=== PATIENT | male | born 1980 | race Caucasian/White ===

== ENCOUNTER 2024-12-24 14:08 | Inpatient (IN) ==
--- NOTE | 2024-12-24 14:21 | Emergency Department Note ---
Impression & Plan ST elevation myocardial infarction (STEMI), Chest pain, Unstable angina ED Provider Note NAME: OSMIN KINNEY AGE: 44 SEX: M : 1980 ARRIVES VIA: Ambulance INFORMANT: Patient, EMS ED PROVIDER(S): Kian Pennington DO CHIEF COMPLAINT: Heart alert HPI: The patient is a 44-year-old male who presented to the emergency department as a transfer directly from [facility] for an evaluation of acute VA. The patient had a EKG at their facility that showed ST segment elevation VA in the inferior leads. The patient states he started having chest pain yesterday. He was treated with aspirin heparin as well as morphine at the transferring center. The patient states his pain is significantly improved. I did contact the ssn/ssbn assistant navigator prior to the patient arrival. ROS: See above HPI for pertinent positives & negatives. A total of 10 systems reviewed and were otherwise negative. PAST MEDICAL HISTORY: See Below PAST SURGICAL HISTORY: See Below FAMILY HISTORY: See Below SOCIAL HISTORY: See Below HOME MEDICATIONS: See Below ALLERGIES: See Below VITALS: See Below PHYSICAL EXAMINATION: GENERAL: The patient is awake and alert. The patient appears uncomfortable. EYES: The conjunctivae are clear. The pupils are round and reactive. EARS, NOSE, MOUTH AND THROAT: The nose is without any evidence of any deformity. NECK: The neck is nontender and supple. RESPIRATORY: Normal respiratory effort is noted there is no evidence of wheezing rhonchi or rales CARDIOVASCULAR: Regular rate and rhythm noted there no murmurs rubs or gallops normal S1 normal S2. GASTROINTESTINAL: The abdomen is soft. Abdomen is nontender. MUSCULOSKELETAL/EXTREMITIES: There is no evidence of gross deformity full range of motion is noted in the hips and shoulders. SKIN: There is no obvious evidence of any rash. There are no petechiae, pallor or cyanosis noted. NEUROLOGIC: Patient is awake alert and oriented x3 MEDICAL DECISION MAKING: The patient is a 44-year-old male who was sent to the emergency department from [facility] for an evaluation of unstable angina and chest pain. The patient had EKG abnormalities that were worrisome for ischemia. The patient was treated with aspirin as well as morphine and heparin at the previous facility. He arrived at our facility with significant improvement of his pain but pain was still present. The patient's EKG did show improvement compared to his earlier tracing. I discussed his condition with the ssn/ssbn assistant navigator. The patient was evaluated in the emergency department. Given his findings this could be consistent with a recent VA as he has Q waves in the inferior and lateral leads. The patient ultimately was found to have an elevated cardiac biomarker. He was taken directly to the Senior Catering Sales Manager from the emergency department. I discussed his condition with the on-call [facility] Hospitalist as well. Triage Nursing notes reviewed. Prior medical records reviewed from [facility]. Vital Signs: reviewed and remarkable for no significant abnormalities Differential diagnosis: Cardiac ischemia, aortic dissection, pulmonary embolism, pneumothorax, pneumonia, pericarditis, myocarditis, esophageal rupture, GERD, cholecystitis, pancreatitis, musculoskeletal, as well as other pathologies. ER treatment provided: See below Diagnostics interpreted by me: ECG: EKG was obtained in the emergency department. My interpretation is normal sinus rhythm at 80 bpm. There is no ectopy. Inferior and lateral Q waves were noted consistent with an age-indeterminate STEMI. There was also mild ST elevations in the inferior leads. This was compared to a tracing at the previous facility. The ST segment elevation is improved compared to the previous tracing. Cardiac Monitoring: An order was placed for continuous cardiac monitoring. The monitor shows a rate of 81 bpm with sinus rhythm. Laboratory studies: As stated above and show below. Imaging studies: See below. Consultation(s): I discussed this case with Dr. Berger who is on-call for interventional cardiology. I discussed this case with the Michelle who is on-call for the [facility] Hospitalist group. ED COURSE: Procedures: none Critical Care: I have personally spent greater than 35 minutes of critical care time in the direct management of this patient. This includes bedside care, interpretation of diagnostic studies, and testing, discussion with consultants, patient, and family members, and other required patient management activities. This 35 minutes is in excess of all separately billable procedures. Past Med/Surg History Problem List (Updated 12/24/24 @ 15:24 by Kian Pennington DO) Unstable angina (Acute) Chest pain (Acute) ST elevation myocardial infarction (STEMI) (Acute) Social History Feels Safe at Home: Yes Results & Data (ED) Vital Signs Vital Signs - 24 hr 12/24/24 14:10 12/24/24 14:25 Temperature 36.5 C Temperature Source Oral Pulse Rate 80 81 Pulse Rhythm Regular Pulse Strength Normal Respiratory Rate 18 Respiratory Effort / Characteristics Non-Labored Spontaneous Respiratory Depth Normal Respiratory Pattern Regular Blood Pressure 105/76 Blood Pressure Mean 85 Pulse Oximetry 93 Oxygen Delivery Method Room Air Sepsis Recent Fever Within 48 Hours No Sepsis New/Unexplained Change in Mental Status No Sepsis Action Taken by Nursing No Action Required Home Medications Current Medication List: was personally reviewed by me Laboratory Data Attestation: I reviewed the patient's lab results. 12/24/24 14:19 12/24/24 14:19 Lab Results 12/24/24 12/24/24 Range/Units 14:19 14:24 WBC 14.53 H (4.8-10.8) K/ul RBC 4.79 (4.70-6.10) M/uL Hgb 13.9 L (14.0-18.0) g/dL POC Hgb 13.3 L (14.0-18.0) g/dl Hct 39.8 L (42.0-52.0) % POC Hct 39 L (42-52) % MCV 83.1 (80.0-100.0) fL MCH 29.0 (25.0-34.0) pg MCHC 34.9 (32.0-36.0) g/dL RDW Std Deviation 40.3 (36.4-46.3) fL RDW Coeff of Tha 13.3 (11.5-14.5) % Plt Count 220 (130-400) K/uL MPV 9.1 L (9.4-12.4) fL Immature Gran % (Auto) 0.4 % Neut % (Auto) 70.7 % Lymph % (Auto) 15.8 % Faulk % (Auto) 12.6 % Eos % (Auto) 0.2 % Baso % (Auto) 0.3 % Neut # (Auto) 10.28 H (1.40-6.50) K/uL Lymph # (Auto) 2.29 (1.20-3.40) K/uL Faulk # (Auto) 1.83 H (0.11-0.59) K/uL Eos # (Auto) 0.03 (0.00-0.50) K/uL Baso # (Auto) 0.04 (0.00-0.20) K/uL Immature Gran # (Auto) 0.06 (0.01-0.20) K/uL PT 11.2 (9.0-12.0) Seconds INR 1.1 (0.9-1.1) APTT 40 H (21-31) Seconds PTT Ratio 1.5 POC Sodium 137 (135-144) mmol/L Sodium 136 (136-145) mmol/L POC Potassium 3.7 (3.3-5.0) mmol/L Potassium 3.8 (3.5-5.1) mmol/L POC Chloride 100 L (101-112) mmol/L Chloride 103 (98-107) mmol/L Carbon Dioxide 25 (21-32) mmol/L POC Total CO2 22 L (24-31) mmol/L Anion Gap 8 (3-11) POC Anion Gap 19.0 (16-25) mmol/L POC BUN 18 (7-18) mg/dl BUN 19 (6-23) mg/dl Creatinine 1.12 (0.6-1.4) mg/dl POC Creatinine 1.3 (0.6-1.3) mg/dl Est Cr Clr Drug Dosing 134.3 ml/min eGFR 82.56 BUN/Creatinine Ratio 17.0 (10-20) Glucose 97 (70-99(Fasting)) mg/dl POC Glucose (other) 95 (70-99) mg/dl Calcium 8.9 (8.6-10.3) mg/dl POC Ioniz Calcium Anneliese 1.16 (1.12-1.32) mmol/l Total Bilirubin 1.0 (0.2-1.0) mg/dl AST 161 H (13-39) U/L ALT 41 (7-52) U/L Alkaline Phosphatase 44 (34-104) U/L Troponin I High Sens 38546.4 H* (0-20) pg/ml Total Protein 6.7 (6.0-8.3) gm/dl Albumin 3.9 (3.4-5.0) gm/dl Globulin 2.8 (2.5-4.0) gm/dl Albumin/Globulin Ratio 1.4 (0.9-2) Lipase 238 H (11-82) U/L Discharge Plan Visit Data Chief Complaint: Cardiac Assessment Stated Complaint: Cardiac Assessment ED Provider: Kian Pennington Discharge Problem: ST elevation myocardial infarction (STEMI), Chest pain, Unstable angina Patient Disposition: Being Evaluated by Hospitalist Condition: Fair Forms Stand Alone Forms: My [facility] Referrals Referrals: PCP,NO [Primary Care Provider] -
--- NOTE | 2024-12-24 14:29 | Pre Anesthesia Assessment ---
Date of Service December 24, 2024 Pre Sedation Assessment Vital Signs Temp Pulse Resp BP Pulse Ox O2 Del Method 12/24/24 14:25 81 12/24/24 14:10 36.5 C 80 18 105/76 93 Room Air Cardiovascular RRR, no murmur, no edema Respiratory normal respiratory effort, lungs clear to auscultation Pre-Sedation Airway Assessment class 3 ASA 4 Notes The planned sedation has been discussed with the patient. Informed Consent was obtained. I have identified the patient, determined the appropriateness of sedation and have assessed the patient immediately prior to the procedure. All medicine(s) and interventions are by my order.
[2024-12-24 14:34] LABS: Hematocrit (blood only) 39.8 % (42.0-52.0); Hemoglobin 13.9 g/dL (14.0-18.0); Immature Granulocytes # (auto) 0.06 K/uL (0.01-0.20); Immature Granulocytes % (auto) 0.4 %; Mean Corpuscular Hemoglobin 29.0 pg (25.0-34.0); Mean Corpuscular Volume 83.1 fL (80.0-100.0); Platelet Count 220 K/uL (130-400); RDW Standard Deviation 40.3 fL (36.4-46.3); Red Blood Count 4.79 M/uL (4.70-6.10); White Blood Count 14.53 K/ul (4.8-10.8)
[2024-12-24 14:52] LABS: Alanine Aminotransferase 41.0 U/L (7-52); Anion Gap 8.0 (3-11); Bilirubin,Total 1.0 mg/dl (0.2-1.0); Blood Urea Nitrogen 19.0 mg/dl (6-23); Calcium 8.9 mg/dl (8.6-10.3); Carbon Dioxide 25.0 mmol/L (21-32); Chloride 103.0 mmol/L (98-107); Creatinine Clr Calc Pharmacy 134.3 ml/min; Glucose 97.0 mg/dl (70-99(Fasting)); Potassium 3.8 mmol/L (3.5-5.1); Sodium 136.0 mmol/L (136-145)
[2024-12-24 14:53] LABS: Albumin Globulin Ratio 1.4 (0.9-2); Albumin Level 3.9 gm/dl (3.4-5.0); Alkaline Phosphatase 44.0 U/L (34-104); Globulin 2.8 gm/dl (2.5-4.0); Lipase 238.0 U/L (11-82); Total Protein 6.7 gm/dl (6.0-8.3)
[2024-12-24 15:09] LABS: INR 1.1 (0.9-1.1); Partial Thromboplastin Time 40 Seconds (21-31); Prothrombin Time 11.2 Seconds (9.0-12.0)
[2024-12-24] MEDS: HEPARIN (PORCINE) 1000 UNIT/ML 10 ML (CATH LAB USE ONLY) ONE ×2 (15:52→16:14)
[2024-12-24] MEDS: niCARdipine 2,000 MCG/20 ML SYR ONE (15:52)
[2024-12-24] MEDS: NITROGLYCERIN/D5W 100MCG/ML 20ML SYR ONE (15:52)
--- NOTE | 2024-12-24 16:03 | Post Anesthesia Assessment ---
Date of Service December 24, 2024 Post Sedation Assessment Vital Signs Temp Pulse Resp BP Pulse Ox O2 Del Method 12/24/24 14:25 81 12/24/24 14:10 36.5 C 80 18 105/76 93 Room Air Recovery Score Activity: Moves 4 extremities Respiration: Deep Breath/Cough Circulation: +/-20% PreAnes Value Consciousness: Fully Awake Oxygen Saturation: > 92% On Room Air Discharge Sedation Level of Care: Fast Track Phase II Post Sedation Plan On clinical assessment, the patient appears to have tolerated the sedation without complications. Patient is recovering as anticipated. Patient will continue to be monitored by nursing and may be discharged when sedation discharge criteria are met per below protocol. Upon Completions of procedure up to 15 minutes continue every 5 minute vital signs and the P.A.R. score; then discharge to a Phase I or Fast Track to Phase II per the following guidelines: * Discharge Patient to appropriate Phase II area if PAR is 8 or greater or return to pre- procedure baseline. The post - procedure orders will be as directed. * If PAR score is less than 8 or not return to pre-procedure baseline then patient will follow Phase I monitoring till PAR is reached for Phase II. The Phase I may be done in procedure room or may call to secure a Phase I area. * If naloxone or flumazenil are used for reversal, hold in Phase I for continued monitoring from when last reversal dose was given for a minimum of 60 minutes or longer pending the nurse and/or physician discretion of patient condition before discharge to Phase II. Please call the Sedation Physician to re-evaluate and complete post-note for discharge to Phase II area. Do NOT discharge from procedure sedation or Phase 1 until post- sedation evaluation note is complete by procedure /sedation MD Sedation Discharge Instructions to be given to the patient at discharge to home. [facility] Procedure Codes (Charges) Indication for Procedure Indication for procedure: STEMI
[2024-12-24] MEDS: MIDAZOLAM HCL 1 MG/ML 2ML VIAL ONE ×2 (16:11→16:13)
[2024-12-24] MEDS: OPTIRAY 350 ONE (16:11)
[2024-12-24] MEDS: PHENYLEPHRINE 100MCG/ML 5ML SYR ONE (16:12)
[2024-12-24] MEDS: TICAGRELOR 90 MG TAB ONE (16:12)
[2024-12-24] MEDS: ATROPINE SULFATE 0.1 MG/ML 10ML SYR IV ONE (16:12)
[2024-12-24] MEDS: EPTIFIBATIDE 0.75 MG/ML 75MG VIAL (CATH LAB USE ONLY) IV ONE (16:13)
[2024-12-24] MEDS: EPTIFIBATIDE 2 MG/ML 10 ML VIAL (CATH LAB USE ONLY) IV ONE (16:13)
[2024-12-24] MEDS: HEPARIN 25000 UNIT/500 ML D5W IV ONE (16:14)
[2024-12-24] MEDS ORDERED: NITROGLYCERIN SL 0.4 MG/TAB TAB SL PRN (16:20)
[2024-12-24] MEDS ORDERED: EPTIFIBATIDE BOLUS/DRIP IV STA (16:20)
[2024-12-24] MEDS ORDERED: ATROPINE SULFATE 0.1 MG/ML 10ML SYR IV PRN (16:20)
[2024-12-24] MEDS ORDERED: ONDANSETRON INJ 2 MG/ML 2 ML VIAL IV PRN (16:20)
[2024-12-24] MEDS ORDERED: SODIUM CHLORIDE 0.9% 1,000 ML IV SCH (16:30)
[2024-12-24] MEDS ORDERED: EPTIFIBATIDE 75 MG/100 ML VIAL IV SCH (16:30)
[2024-12-24] MEDS: OPTIRAY 320 125ml IV ONE (16:49)
[2024-12-24] MEDS: DEXTROSE 50% 50 ML SYRINGE IV STA (16:54)
[2024-12-24] MEDS: DEXTROSE 50% 50 ML SYRINGE IV ONE (16:54)
--- NOTE | 2024-12-24 17:11 | CT Scan Report ---
Technique: Axial computed tomography images were obtained of the neck after the administration of intravenous contrast according to the CT angiogram protocol Findings: No stenosis is seen in the common carotid arteries bilaterally. There is plaque within the right carotid bulb, with less than 30% diameter narrowing. The remainder of the internal carotid arteries appear patent bilaterally. There is plaque within the proximal external carotid arteries bilaterally without significant stenosis The vertebral arteries are patent bilaterally with no significant stenosis seen. The visualized thoracic aorta appears unremarkable Impression: Bilateral carotid atherosclerosis without significant stenosis Electronically signed by Isidro Hayden 12-24-2024 5:10 PM
[2024-12-24] MEDS: MoRPHine SULFATE 10 MG/ML CARP/VIAL IV PRN (17:15)
--- NOTE | 2024-12-24 17:17 | History & Physical Report ---
Date of Service December 24, 2024 Assessment & Plan Admission and Anticipated Discharge Date Admission Date: December 24, 2024 History of Present Illness Chief Complaint: chest pain Primary Care Provider: NO PCP Allergies Allergy/AdvReac Type Severity Reaction Status Date / Time No Known Allergies Allergy Unverified 12/24/24 16:43 Past Med/Surg History Problem List (Updated 12/24/24 @ 15:24 by Kian Pennington DO) Unstable angina (Acute) Chest pain (Acute) ST elevation myocardial infarction (STEMI) (Acute) Social History Feels Safe at Home: Yes Results & Data Results & Data Vital Signs (Past 12 Hours) Vital Signs Temp Pulse Resp BP Pulse Ox O2 Del Method 12/24/24 14:25 81 12/24/24 14:10 36.5 C 80 18 105/76 93 Room Air Code Status & VTE Plan VTE Prophylaxis Plan VTE Prophylaxis will be ordered: Yes
--- NOTE | 2024-12-24 17:24 | CT Scan Report ---
Technique: Axial computed tomography images were obtained of the brain before and after the administration of intravenous contrast according to the CT angiogram protocol Findings: There is some contrast within the dural sinuses and arteries on the precontrast images No definite stenosis or aneurysm is seen of the anterior, middle, or posterior cerebral artery circulations. The visualized vertebral arteries and the basilar artery appear unremarkable Impression: No definite stenosis or aneurysm of the intracranial arteries Electronically signed by Isidro Hayden 12-24-2024 5:23 PM
[2024-12-24] MEDS ORDERED: PNEUMOCOCCAL VACCINE (PCV20) 20-VAL CONJ-DIP CRM/PF 0.5 ML SYR IM ONE (17:57)
[2024-12-24] MEDS ORDERED: INFLUENZA VACC TS2025-26(6m+)/PF (IIV3) 0.5mL Syr IM ONE (17:57)
[2024-12-24 17:58] LABS: Hematocrit (blood only) 39.2 % (42.0-52.0); Hemoglobin 13.3 g/dL (14.0-18.0); Immature Granulocytes # (auto) 0.05 K/uL (0.01-0.20); Immature Granulocytes % (auto) 0.4 %; Mean Corpuscular Hemoglobin 28.7 pg (25.0-34.0); Mean Corpuscular Volume 84.7 fL (80.0-100.0); Platelet Count 202 K/uL (130-400); RDW Standard Deviation 41.6 fL (36.4-46.3); Red Blood Count 4.63 M/uL (4.70-6.10); White Blood Count 13.34 K/ul (4.8-10.8)
[2024-12-24] MEDS: MoRPHine SULFATE 2 MG/ML CARP IV STA (18:05)
[2024-12-24] MEDS ORDERED: MoRPHine SULFATE 2 MG/ML CARP ONE (18:05)
[2024-12-24 18:09] LABS: Albumin Level 3.7 gm/dl (3.4-5.0); Anion Gap 8.0 (3-11); Bilirubin,Total 1.2 mg/dl (0.2-1.0); Calcium 8.3 mg/dl (8.6-10.3); Carbon Dioxide 22.0 mmol/L (21-32); Chloride 103.0 mmol/L (98-107); Magnesium 2.1 mg/dl (1.7-2.4); Potassium 4.2 mmol/L (3.5-5.1); Sodium 133.0 mmol/L (136-145)
--- NOTE | 2024-12-24 18:12 | Post Operative Brief Note ---
Cardiology Brief Post Op Date of Surgery December 24, 2024 Pre & Post Diagnosis Operation Date: 12/24/24 02:15 <No data on this case meets the specified criteria> Procedure PCI RCA Diagnostic coronary angiography This patient had chest pain for over 2 days and presented to an outside hospital. EKG there suggested inferior ST elevation MS (large inferior Q waves plus [address] elevation in inferior leads). He was transferred to this facility with ongoing chest pain rated 5 out of 10 in severity. EKG here was similar although somewhat improved compared to the outside EKG. Since he had ongoing discomfort he was taken emergently to the cardiac catheterization suite. He had received heparin, aspirin, and Brilinta loading dose. Soft tissue the right wrist were anesthetized using 2 mL of 1% Xylocaine. Right radial artery was accessed and a 6 Belgian radial artery sheath was placed. Patient was provided IV heparin after the ACT was checked, intra-arterial nitroglycerin and nicardipine for vasospasm prevention, and was sedated with fentanyl and Versed. Left coronary angiography was performed in orthogonal views with a 5 Belgian JL 3.5 diagnostic catheter. Right coronary angiography was performed with a 6 Belgian JR4 guide catheter. The RCA was 100% occluded near the ostium. Decision was made to attempt PCI. A run-through guide catheter was advanced through the guide catheter and was passed rather easily past the occluded area. We then used a small caliber (2.0 mm) balloon to predilate the vessel. This yielded some distal flow and there was suggestion of large somewhat organized appearing thrombus. We attempted additional predilatation and aspiration thrombectomy. Pipe Installer angiography suggested possible coronary dissection. This was first looked at with IVUS and then we advanced a small caliber OTW catheter balloon over the wire more distally. We removed the wire and injected contrast which demonstrated dissection all the way down into the distal RCA and branches. The balloon catheter was removed after reinsertion of the wire. A second guidewire was then advanced and positioned distally. IVUS evaluation of this wire suggested that it was in the true lumen. It also suggested a spiral dissection. Since the dissection appeared to be extensive beginning near the ostium of the RCA decision was made to place a stent at the ostium to try to contain extension of the dissection to the aorta. The first wire was removed and a 2.5 mm stent was implanted and postdilated to 3 mm. We then decided to attempt stenting the entire RCA to the distal branches. However, we were only able to place 2 additional stents in an overlap fashion. We were unable to keep the guide catheter in place. After that, angiography suggested decent flow through the stented area but still very restricted flow distally. We tried to reengage with the original JR4 catheter but were unsuccessful. We then changed to a AR-1 but this also could not engage adequately. Finally we downsized to a 5 Belgian JR4 guide catheter which would get to the ostium but we were unsuccessful in readvancing a guidewire distally. We felt further attempts were futile and we had already given him significant contrast and radiation. Decision was made to forego further interventional attempts and instead focus on medical management. Patient was there for transfer to the ICU on heparin drip, Integrilin drip, plan for echocardiogram, and possible referral to tertiary center should he not do well on medical management alone. He was hemodynamically stable with improved chest discomfort. This ended the case. Motor Coach Supervisor Don Berger MD, PhD Filling Station Attendant JUSTIN Nieto Estimated Blood Loss 10 Findings Consistent with Post-Op Diagnosis Anesthesia Type RN Sedation Complications Unsuccessful PCI of RCA Extensive coronary dissection of unclear etiology (spontaneous versus iatrogenic) Disposition Disposition: Surgical ICU [facility] Cardiac Procedure Charge Indication for Procedure Indication for procedure: Late presenting patient ST elevation MS with ongoing symptoms
[2024-12-24 18:15] LABS: Alanine Aminotransferase 36.0 U/L (7-52); Albumin Globulin Ratio 1.4 (0.9-2); Alkaline Phosphatase 40.0 U/L (34-104); Blood Urea Nitrogen 17.0 mg/dl (6-23); Cholesterol 170.0 mg/dl (0-200); Creatinine Clr Calc Pharmacy 106.1 ml/min; Globulin 2.7 gm/dl (2.5-4.0); Glucose 135.0 mg/dl (70-99(Fasting)); HDL Cholesterol 39.0 mg/dl; Total Protein 6.4 gm/dl (6.0-8.3); Triglycerides 85.0 mg/dl (0-150)
--- NOTE | 2024-12-24 18:31 | Discharge Summary ---
Date of Service December 24, 2024 Admission HPI Per Admitting Provider Mr. Shane is a 44 year old male that presetned to the [facility] as a transfer from [facility] for further evaluation of an inferior wall STEMI. At [facility], he was given Aspirin, Morphine and Heparin. Upon arrival to [facility], he was taken to the culture media laboratory assistant immediately after identifying his troponin level of > 25,686. A PCI RCA was performed. In the culture media laboratory assistant, three stents were placed in the RCA and a noted LV Thrombus was identified. Post catheterization, he was taken to the ICU where a stroke alert was called as he started to have right sided weakness. His NIH was 7. He was immediately taken to CT for head and neck CTA which did not identify significant stenosis. [facility] was consulted for stroke like symptoms and it was identified that given the Heparin and Integrilin that he received in cath, that he would not be a TNK candidate. Interventional Cardiology suggested a goal of medication management post catheterization, but at bedside was identified that he was decompensating with his stroke like symptoms and there was concern of possible spontaneous further dissection in the RCA, along with LV thrombus concerns. A head and neck CTA were performed and it was identified that there is plaque within the right carotid bulb, with less than 30% diameter narrowing. The mainder of the internal carotid arteries appear patent bilaterally. Patient is AAOx4 and able to answer simple questions. He denies any previous AMI or CVA. He takes Lisinopril as his only home medication. Around 1800 he did start to have additional anterior chest pain with left arm radiation. Additional PMH includes HTn and HLD. He does take Lisinopril as a home medications. I was able to talk with the patients brother, at bedside, his father who is next of kin and decision maker: Brad Shane on the phone [phone] to provide an update. Due to our limited Neurology and Cardiac resources here at [facility], a transfer was initiated. I spoke directly with Dr. Chavez Roa cardiac [facility] and Dr Fidencio Fry from cardiology. Dr. Fry is the accepting physician. This individual requires an upgrade in care and is currently fit for travel and is hemodynamically stable. All patients belongings and next of kin updated. We appreciate the opportunity to care for Mr. Price. Please do not hesitate to contact us with any questions or concerns. [facility] [phone]. Admission Exam Per Admitting Provider Neuro: AAOx4, PERRLA, no aphagia, memory changes, NIH 7 HEENT: head normocephalic, moist mucus membranes CV: S1/S2, (-) M/G/R, (-) edema, cap refill < 3 seconds Resp: Lungs CTA in all castro. On RA GI: Abdomen S/NT/ND, Ax4 bowel sounds, (-) CVA tenderness Musculoskeletal: LUE 4+/5 strength, RUE 5/5, BL LE 4/5 Skin: (-) rashes , (-) erythema. Psych: euthymic , yet tired mood Principal Diagnosis STEMI and LV thrombus/stroke like symptoms Discharge Exam Neuro: AAOx3, PERRLA, NIH 7, vision blurry, HEENT: head normocephalic, moist mucus membranes CV: S1/S2, (-) M/G/R, (-) edema, cap refill < 3 seconds Resp: Lungs CTA in all castro. On 6 liters oxymask GI: Abdomen S/NT/ND, Ax4 bowel sounds, (-) CVA tenderness Musculoskeletal: 3/5 RUE strength with contracted right hand, 4/5 LUE strength, Skin: (-) rashes , (-) erythema. Psych: euthymic mood Discharge Data Allergies Allergy/AdvReac Type Severity Reaction Status Date / Time No Known Allergies Allergy Unverified 12/24/24 16:43 Consultations 12/24/24 14:19 Consult Cardiac Catheterization Stat 12/24/24 14:48 ED Decision to Admit Stat 12/24/24 15:18 Consult [place] Routine 12/24/24 16:28 Consult Cardiac Rehabilitation Routine 12/24/24 16:42 Consult [place] Routine 12/24/24 17:06 Burn CD for patient Stat Procedures Performed Operation Date: 12/24/24 02:15 Actual Procedures p Cineradiography w/Routine Exam - Don Berger MD, PhD Ordered Studies 12/24/24 14:22 CL Cath Imgs for PACS use only Stat sent via computer 12/24/24 16:43 CTA head wo/w [CT angio head wo/w] Stat CTA neck with con [CT angio neck with con] Stat Findings: There is some contrast within the dural sinuses and arteries on the precontrast images No definite stenosis or aneurysm is seen of the anterior, middle, or posterior cerebral artery circulations. The visualized vertebral arteries and the basilar artery appear unremarkable Impression: No definite stenosis or aneurysm of the intracranial arteries Hospital Course (1) Unstable angina: (2) Chest pain: (3) ST elevation myocardial infarction (STEMI): (4) HTN (hypertension): (5) Stroke-like symptoms: Total Time Total Time Spent Total Time Spent (In Minutes): I spent a total of 108 minutes coordinating, documenting, and providing care for this patient excluding time spent inthe performance of separately billed services or time spent by another provider/QHP. Discharge Plan Discharge Items Patient Disposition: Transfer Acute Care Hospital Reason For Visit: HEART ALERT Discharge Diagnosis: LV Thrombus/Stroke symptoms Condition on Discharge: Fair Activity: As commented below Activity Comment: bed rest until further evaluation Lifting: None Non-emergency contact: Primary Care Provider, Surgeon and [employer] Slitting Machine Operator Call non-emergency contact if: you have any medication questions and your symptoms worsen Follow-up/Referrals: PCP,NO [Primary Care Provider] - Diet: Heart Healthy Addtl Attending Provider Instructions: Mr. Shane is a 44 year old male that presetned to the [facility] as a transfer from [facility] for further evaluation of an inferior wall STEMI. At [facility], he was given Aspirin, Morphine and Heparin. Upon arrival to [facility], he was taken to the culture media laboratory assistant immediately after identifying his troponin level of > 26,000. In the culture media laboratory assistant, three stents were placed in the RCA and a noted LV Thrombus was identified. Post catheterization, he was taken to the ICU where a stroke alert was called as he started to have right sided weakness. His NIH was 7. He was immediately taken to CT for head and neck CTA which did not identify significant stenosis. [facility] was consulted for stroke like symptoms and it was identified that given the Heparin and Integrilin that he received in cath, that he would not be a TNK candidate. Interventional Cardiology suggested a goal of medication management post catheterization, but at bedside was identified that he was decompensating with his stroke like symptoms and there was concern of possible spontaneous further dissection in the RCA, along with LV thrombus concerns. A head and neck CTA were performed and it was identified that there is plaque within the right carotid bulb, with less than 30% diameter narrowing. The mainder of the internal carotid arteries appear patent bilaterally. Patient is AAOx4 and able to answer simple questions. He denies any previous AMI or CVA. He takes Lisinopril as his only home medication. Around 1800 he did start to have additional anterior chest pain with left arm radiation. I was able to talk with the patients brother, at bedside, his father who is next of kin and decision maker: Brad Shane on the phone [phone] to provide an update. Due to our limited Neurology and Cardiac resources here at [facility], a transfer was initiated. A large LV thrombus, and now likely TIA vs. stroke was identified. EF appears around 30%. I spoke directly with Dr. Chavez Roa cardiac sugery and Dr Fidencio Fry from cardiology. Dr. Fry is the accepting physician. This individual requires an upgrade in care and is currently fit for travel and is hemodynamically stable. All patients belongings and next of kin updated. We appreciate the opportunity to care for Mr. Price. Please do not hesitate to contact us with any questions or concerns. [facility] . Pending Studies at Discharge: No Stand-Alone Forms: My [facility] Skilled Items Patient informed of condition?: Yes DNR: No Discharge Level of Care: Other Communicable Disease: No Discharge Prognosis: Deteriorating Lines: Peripheral IV Urinary Catheter: Yes Medications and DC Order Prescriptions: New atorvastatin 40 mg Tablet 40 mg PO QAM Qty: 7 0RF aspirin 81 mg Tablet,Delayed Release (Dr/Ec) 81 mg PO QAM Qty: 7 0RF lisinopril 5 mg Tablet 5 mg PO QAM Qty: 7 0RF metoprolol tartrate 25 mg Tablet 25 mg PO BID Qty: 7 0RF ticagrelor [Brilinta] 90 mg Tablet 90 mg PO BID Qty: 7 0RF Discharge Orders: Discharge Order (Routine); Ordered 12/24/24 Ordered By: Jackie Jackson Admission Data Admit Date/Time: 12/24/24 15:16 Attending Provider: Jackie Jackson I. Admit Provider: Dre Avery Primary Care Provider: PCP,NO Other Providers: Don Berger; Dre Avery; Vlad Perez Supervising Physician Co-Signing Physician Notes Patient seen and examined at bedside. Patient does not look comfortable on exam. Crushing chest pain. States weakness started after catheterization. Feels weak on right side. On exam, NIHSS of 5 for right arm drift, right leg drift, right facial droop. Also has blurry vision in right eye. Leukocytosis noted perhaps reactive. Na of 133 noted, [place] [address] in setting of STEMI s/p 3 stents to RCA and RCA dissection. Very complex case. Patient s/p inferior STEMI, now s/p 3 stents to RCA, partial fusiform RCA dissection, large LV thrombus, and now likely TIA vs. stroke. EF appears around 30%. Requires stroke center and advanced interventional cardiology team at tertiary care center given complexity of case. Going to [facility] cardiac ICU which is appropriate given complexity of case and possible need for further interventions. I have seen and discussed the case with the collaborating advanced practitioner. I agree with the above H&P. I have reviewed and confirmed the patients medical history, the findings on physical examination, and the patients diagnosis and treatment plan with Jackie WORTHY and agree with the information documented. I spent a total of 80 minutes coordinating, documenting, and providing care for this patient excluding time spent in the performance of separately billed services. All of the aforementioned completed outside of collaborating with the assigned advanced practitioner for a full treatment plan. I have reviewed the advanced practitioner's documentation, and I agree with, and take responsibility for the plan of care
[2024-12-24 18:40] LABS: Hemoglobin A1C 6.4 % (4.5-5.6)
[2024-12-24 18:43] LABS: INR 1.1 (0.9-1.1); Prothrombin Time 11.6 Seconds (9.0-12.0)
[2024-12-24 19:00] LABS: Partial Thromboplastin Time > 139 Seconds (21-31)
--- NOTE | 2024-12-24 19:27 | History & Physical Report ---
Date of Service December 24, 2024 Assessment & Plan (1) Unstable angina: (2) Chest pain: (3) ST elevation myocardial infarction (STEMI): (4) HTN (hypertension): (5) Stroke-like symptoms: Plan Mr. Shane is a 44 year old male that presetned to the [facility] as a transfer from [facility] for further evaluation of an inferior wall STEMI. At [facility], he was given Aspirin, Morphine and Heparin. Upon arrival to [facility], he was taken to the laborer cook house immediately after identifying his troponin level of > 25,686. A PCI RCA was performed. In the laborer cook house, three stents were placed in the RCA and a noted LV Thrombus was identified. Post catheterization, he was taken to the ICU where a stroke alert was called as he started to have right sided weakness. His NIH was 7. He was immediately taken to CT for head and neck CTA which did not identify significant stenosis. [facility]] was consulted for stroke like symptoms and it was identified that given the Heparin and Integrilin that he received in cath, that he would not be a TNK candidate. Interventional Cardiology suggested a goal of medication management post catheterization, but at bedside was identified that he was decompensating with his stroke like symptoms and there was concern of possible spontaneous further dissection in the RCA, along with LV thrombus concerns. A head and neck CTA were performed and it was identified that there is plaque within the right carotid bulb, with less than 30% diameter narrowing. The mainder of the internal carotid arteries appear patent bilaterally. Patient is AAOx4 and able to answer simple questions. He denies any previous AMI or CVA. He takes Lisinopril as his only home medication. Around 1800 he did start to have additional anterior chest pain with left arm radiation. I was able to talk with the patients brother, at bedside, his father who is next of kin and decision maker: Brad Shane on the phone [phone] to provide an update. Due to our limited Neurology and Cardiac resources here at [facility], a transfer was initiated. I spoke directly with Dr. Chavez Roa cardiac nika and Dr Fidencio Fry from cardiology. Dr. Fry is the accepting physician. This individual requires an upgrade in care and is currently fit for travel and is hemodynamically stable. All patients belongings and next of kin updated. We appreciate the opportunity to care for Mr. Price. Please do not hesitate to contact us with any questions or concerns. [facility] [phone]. In the laborer cook house, three stents were placed in the RCA and a noted LV Thrombus was identified. Post catheterization, he was taken to the ICU where a stroke alert was called as he started to have right sided weakness. His NIH was 7. He was immediately taken to CT for head and neck CTA which did not identify significant stenosis. [facility] and it was identified that given the Heparin and Integrilin that he received in cath, that he would not be a TNK candidate. Interventional Cardiology suggested a goal of medication management post catheterization, but at bedside was identified that he was decompensating with his stroke like symptoms and there was concern of possible spontaneous further dissection in the RCA, along with LV thrombus concerns. A head and neck CTA were performed and it was identified that there is plaque within the right carotid bulb, with less than 30% diameter narrowing. The mainder of the internal carotid arteries appear patent bilaterally. Patient is AAOx4 and able to answer simple questions. He denies any previous AMI or CVA. He takes Lisinopril as his only home medication. Around 1800 he did start to have additional anterior chest pain with left arm radiation. Pt smokes 5-6 cigarettes per day, no alcohol use, no recreational drug use. I was able to talk with the patients brother, at bedside, his father who is next of kin and decision maker: Brad Svitlana on the phone [phone] to provide an update. Due to our limited Neurology and Cardiac resources here at [facility], a transfer was initiated. I spoke directly with Dr. Chavez Roa cardiac [facility] and Dr Fidencio Fry from cardiology. Dr. Fry is the accepting physician. This individual requires an upgrade in care and is currently fit for travel and is hemodynamically stable. All patients belongings and next of kin updated. We appreciate the opportunity to care for Mr. Price. Please do not hesitate to contact us with any questions or concerns. [facility] [phone]. Admission and Anticipated Discharge Date Admission Date: December 24, 2024 History of Present Illness Chief Complaint: chest pain Primary Care Provider: NO PCP Mr. Shane is a 44 year old male that presetned to the [facility] as a transfer from [facility] for further evaluation of an inferior wall STEMI. At [facility], he was given Aspirin, Morphine and Heparin. Upon arrival to [facility], he was taken to the laborer cook house immediately after identifying his troponin level of > 25,686. A PCI RCA was performed. In the laborer cook house, three stents were placed in the RCA and a noted LV Thrombus was identified. Post catheterization, he was taken to the ICU where a stroke alert was called as he started to have right sided weakness. His NIH was 7. He was immediately taken to CT for head and neck CTA which did not identify significant stenosis. [facility]3] was consulted for stroke like symptoms and it was identified that given the Heparin and Integrilin that he received in cath, that he would not be a TNK candidate. Interventional Cardiology suggested a goal of medication management post catheterization, but at bedside was identified that he was decompensating with his stroke like symptoms and there was concern of possible spontaneous further dissection in the RCA, along with LV thrombus concerns. A head and neck CTA were performed and it was identified that there is plaque within the right carotid bulb, with less than 30% diameter narrowing. The mainder of the internal carotid arteries appear patent bilaterally. Patient is AAOx4 and able to answer simple questions. He denies any previous AMI or CVA. He takes Lisinopril as his only home medication. Around 1800 he did start to have additional anterior chest pain with left arm radiation. Additional PMH includes HTn and HLD. He does take Lisinopril as a home medications. I was able to talk with the patients brother, at bedside, his father who is next of kin and decision maker: Brad Shane on the phone [phone] to provide an update. Due to our limited Neurology and Cardiac resources here at [facility], a transfer was initiated. I spoke directly with Dr. Chavez Roa cardiac [facility] and Dr Fidencio Fry from cardiology. Dr. Fry is the accepting physician. This individual requires an upgrade in care and is currently fit for travel and is hemodynamically stable. All patients belongings and next of kin updated. We appreciate the opportunity to care for Mr. Price. Please do not hesitate to contact us with any questions or concerns. [facility] [phone]. Allergies Allergy/AdvReac Type Severity Reaction Status Date / Time No Known Allergies Allergy Unverified 12/24/24 16:43 Home Medications Medication Instructions Recorded Confirmed Type aspirin 81 mg tablet,delayed 81 mg PO QAM #7 tabs 12/24/24 Rx release atorvastatin 40 mg tablet 40 mg PO QAM #7 tabs 12/24/24 Rx lisinopril 5 mg tablet 5 mg PO QAM #7 tabs 12/24/24 Rx metoprolol tartrate 25 mg tablet 25 mg PO BID #7 tabs 12/24/24 Rx ticagrelor 90 mg tablet (Brilinta) 90 mg PO BID #7 tabs 12/24/24 Rx Past Med/Surg History Problem List Stroke-like symptoms HTN (hypertension) Unstable angina (Acute) Chest pain (Acute) ST elevation myocardial infarction (STEMI) (Acute) Social History Smoking Status: Current every day smoker Hx Alcohol Use: No Hx Substance Use: No Preferred Language: Slovak Bid Analyst Required: No Beliefs That Will Affect Care: None Current Living Situation: Alone Other Information That Helps Us Care for You: No Feels Safe at Home: Yes Safety Concerns: Afraid for Self Assistive Devices: None Review of Systems Review of Systems: Neuro: (-) Falls, trauma, slurred speech HEENT: (-) BADILLO, dizziness, dysphagia, visual or auditory changes CV: (-), palpitations, swelling (+) anterior chest pain radiating to left arm Resp: (-) SOB GI: (-) appetite changes, N/V/D, bowel changes : (-) urinary changes Skin: (-) rashes Psych: (-) anxiety, depression Physical Exam Physical Exam: Neuro: AAOx4, PERRLA, no aphagia, memory changes, CNII-XII grossly intact HEENT: head normocephalic, moist mucus membranes CV: S1/S2, (-) M/G/R, (-) edema, cap refill < 3 seconds Resp: Lungs CTA in all castro. On RA GI: Abdomen S/NT/ND, Ax4 bowel sounds, (-) CVA tenderness Musculoskeletal: 3/5 RUE strength, 4+/5 LUE/5 B/L LE strength. Skin: (-) rashes , (-) erythema. Psych: euthymic mood Results & Data Results & Data Vital Signs (Past 12 Hours) Vital Signs Temp Pulse Pulse Resp BP BP Pulse Ox 12/24/24 18:30 36.5 C 88 18 122/82 95 12/24/24 18:00 83 16 112/78 91 12/24/24 17:45 85 16 110/94 94 12/24/24 17:30 76 18 140/101 H 94 12/24/24 17:17 132/93 12/24/24 17:15 82 14 141/89 H 99 12/24/24 17:09 125/89 12/24/24 17:03 122/87 12/24/24 17:00 82 24 97 12/24/24 16:54 82 16 116/84 97 12/24/24 16:50 79 20 97 12/24/24 16:41 85 20 118/76 12/24/24 16:37 79 20 125/73 12/24/24 16:30 85 16 98/78 L 12/24/24 14:25 81 12/24/24 14:10 36.5 C 80 18 105/76 93 O2 Del Method O2 Flow Rate 12/24/24 18:30 Oxymask 4 12/24/24 18:00 Oxymask 4 12/24/24 17:45 Oxymask 4 12/24/24 17:30 Oxymask 4 12/24/24 17:17 12/24/24 17:15 Oxymask 4 12/24/24 17:09 12/24/24 17:03 12/24/24 17:00 Oxymask 4 12/24/24 16:54 Oxymask 4 12/24/24 16:50 Oxymask 4 12/24/24 16:41 12/24/24 16:37 12/24/24 16:30 12/24/24 14:25 12/24/24 14:10 Room Air Laboratory Results Short CBC 12/24/24 12/24/24 Range/Units 14:19 17:42 WBC 14.53 H 13.34 H (4.8-10.8) K/ul Hgb 13.9 L 13.3 L (14.0-18.0) g/dL Hct 39.8 L 39.2 L (42.0-52.0) % Plt Count 220 202 (130-400) K/uL BMP 12/24/24 12/24/24 14:19 17:42 Sodium 136 133 L Potassium 3.8 4.2 Chloride 103 103 Carbon Dioxide 25 22 BUN 19 17 Creatinine 1.12 1.17 Glucose 97 135 H Calcium 8.9 8.3 L Liver Function 12/24/24 12/24/24 Range/Units 14:19 17:42 Total Bilirubin 1.0 1.2 H (0.2-1.0) mg/dl AST 161 H 142 H (13-39) U/L ALT 41 36 (7-52) U/L Alkaline Phosphatase 44 40 (34-104) U/L Albumin 3.9 3.7 (3.4-5.0) gm/dl Diagnostic Findings Head CTA 12/24/24 16:43 Technique: Axial computed tomography images were obtained of the brain before and after the administration of intravenous contrast according to the CT angiogram protocol Findings: There is some contrast within the dural sinuses and arteries on the precontrast images No definite stenosis or aneurysm is seen of the anterior, middle, or posterior cerebral artery circulations. The visualized vertebral arteries and the basilar artery appear unremarkable Impression: No definite stenosis or aneurysm of the intracranial arteries Electronically signed by Isidro Hayden 12-24-2024 5:23 PM Neck CTA 12/24/24 16:43 Technique: Axial computed tomography images were obtained of the neck after the administration of intravenous contrast according to the CT angiogram protocol Findings: No stenosis is seen in the common carotid arteries bilaterally. There is plaque within the right carotid bulb, with less than 30% diameter narrowing. The remainder of the internal carotid arteries appear patent bilaterally. There is plaque within the proximal external carotid arteries bilaterally without significant stenosis The vertebral arteries are patent bilaterally with no significant stenosis seen. The visualized thoracic aorta appears unremarkable Impression: Bilateral carotid atherosclerosis without significant stenosis Electronically signed by Isidro Hayden 12-24-2024 5:10 PM Code Status & VTE Plan Code Status Full Code in the event of cardiac or respiratory arrest VTE Prophylaxis Plan VTE Prophylaxis will be ordered: Yes Supervising Physician Co-Signing Physician Notes Patient seen and examined at bedside. Patient does not look comfortable on exam. Crushing chest pain. States weakness started after catheterization. Feels weak on right side. On exam, NIHSS of 5 for right arm drift, right leg drift, right facial droop. Also has blurry vision in right eye. Leukocytosis noted perhaps reactive. Na of 133 noted, [place] [id number] in setting of STEMI s/p 3 stents to RCA and RCA dissection. Very complex case. Patient s/p inferior STEMI, now s/p 3 stents to RCA, partial fusiform RCA dissection, large LV thrombus, and now likely TIA vs. stroke. EF appears around 30%. Cardiology consult, appreciate recs. Code stroke called, not candidate for TNK or mechanical thrombectomy per [facility]. Requires stroke center and advanced interventional cardiology team at tertiary care center given complexity of case. Going to [facility] cardiac ICU which is appropriate given complexity of case and possible need for further interventions. I have seen and discussed the case with the collaborating advanced practitioner. I agree with the above H&P. I have reviewed and confirmed the patients medical history, the findings on physical examination, and the patients diagnosis and treatment plan with Jackie WORTHY and agree with the information documented. I spent a total of 80 minutes coordinating, documenting, and providing care for this patient excluding time spent in the performance of separately billed services. All of the aforementioned completed outside of collaborating with the assigned advanced practitioner for a full treatment plan. I have reviewed the advanced practitioner's documentation, and I agree with, and take responsibility for the plan of care
--- NOTE | 2024-12-24 20:36 | Cardiology Consultation ---
Date of Consultation December 24, 2024 Assessment & Plan (1) ST elevation myocardial infarction (STEMI): This was a late presenting (greater than 48 hours) myocardial infarction. He did however have ongoing symptoms on arrival so decision was made to perform catheterization plus or minus PCI. Coronary angiography initially appeared to be occluded RCA with probable thrombus. However, ultimately he had significant right coronary dissection (spontaneous versus iatrogenic). Attempts to open the artery with stent implantation were incomplete. Ultimately we chose medical management including daily aspirin, Brilinta 90 mg p.o. twice daily, Integrilin drip for 18 hours, heparin drip, and as tolerated as additional guideline directed medical therapy. We had significant's concern because of the suboptimal outcome of PCI that he may require referral to tertiary center for alternative attempts at revascularization. (2) Stroke-like symptoms: He did not have any symptoms consistent with stroke when he left the [employer]. Nursing did not report any change/new symptoms in transport. However, he did develop strokelike symptoms during the echocardiogram and initial images suggested LV thrombus, severe LV dysfunction with akinesis near the apex. The echo was completed after the stroke workup and then is being read by Dr. Najera. Agree with transfer to tertiary center so that he may receive optimal neurology treatment. Also, should he decompensate from a cardiac standpoint cardiac surgery would be available if needed. History of Present Illness Reason for Consultation: ST elevation ME Attending Physician: DEACON Louise History of Present Illness 44-year-old gentleman who presented to an outside facility with complaints of chest discomfort persistent over the prior 2 days. Patient told me 1 day of chest pain occurring shortly after he was working in the yard. His brother (who is an EMT) told me that it had been 2 days of continuous pain and he tried to get his brother to go to the emergency department but he would not do so. He confirmed that his brother had been working fairly hard in the yard and that he had history of poorly controlled blood pressure but felt that it was probably closer to an hour before he mentioned anything about chest discomfort. Finally, today he was feeling so poorly that his brother was able to convince him to go to the [facility] for evaluation. EKG at the outside facility suggested ST elevation ME with inferior Q waves and [address] elevation in the inferior leads. He was given IV heparin as well as aspirin and transferred to our facility. Here, he received Brilinta 180 mg p.o. He had persistent chest pain and appeared ill. EKG performed in the emergency department at this facility seemed somewhat improved compared to that from the outside facility. Patient still had 5 out of 10 chest pain and therefore decision was made to proceed with diagnostic coronary angiography plus or minus PCI as indicated. In the cardiac catheterization suite diagnostic coronary angiography was performed. This demonstrated essentially normal left coronary system which was providing collateralization to the large distal branches of the RCA. Right coronary angiography revealed 100% occlusion near the ostium of the RCA with suggestion of significant thrombus. A 6 Hungarian JR4 guide catheter was placed just inside the ostium and a run-through coronary guidewire was advanced relatively easily through the occlusion and positioned with its tip in the mid RCA. Initial PTCA performed with a small caliber balloon. Clamshell Engineer angiography was performed and the vessel appeared to have organized/layered thrombus. The decision was made to attempt further dilation with balloon and aspiration thrombectomy. However, this did not yield the anticipated improvement. It became concerning that there was dissection in the proximal RCA and we therefore advanced a small OTW balloon catheter distally over the wire. After removal of the wire, contrast was injected through the catheter and angiography confirmed extensive dissection. At that point, decision was made to try to contain the dissection proximally so that it would not extend into the aorta. After it was stented that portion seems stabilized with a normal caliber. We then attempted to perform "full metal jacket stent implantation. However, unable to complete that as the guide catheter and guidewire did not stay within the ostium and we were unable to adequately recannulate and advance a wire distally. Therefore, when it was clear that this was futile we decided to forego further attempts given the risk of perforation, excessive contrast and radiation exposure. Therefore, the patient ended up with 3 overlapped drug-eluting stents extending from the ostium of the RCA through the mid segment into the early distal segment. Flow through the stented segment was reasonable but flow distal to that was poor. Patient had significant collateral flow from the left side and so we felt medical management would be most appropriate at this time. Patient w as improved from a chest pain standpoint although he still had some residual discomfort and was therefore sent to the ICU for an echocardiogram to be done on arrival as well as optimized medical therapy. This included heparin drip, Integrilin drip, and additional standard cardiac medications as tolerated. Unfortunately, sometime after arrival in the ICU while echo was being performed the patient developed right sided visual change as well as right arm heaviness. A code stroke was called. The initial echo images suggested significantly reduced EF, akinetic apical area and probable mural thrombus. Patient was sent to the CT scanner where there was no evidence of intracranial hemorrhage. Suspicion that he had a stroke secondary to embolism of mural thrombus. ICU team discussed treatment for the stroke and he was deemed not a candidate for mechanical thrombectomy and not a candidate for fibrinolytics given the preceding use of heparin, Brilinta, aspirin, and Integrilin for his attempted PCI. Discussion was had with his family including his brother who was present at the bedside regarding transfer. They wished transfer to [facility] in [place] as family was closest to that area. After extensive discussion the ICU team was able to get the patient accepted to the cardiology service in [place]. Allergies Allergy/AdvReac Type Severity Reaction Status Date / Time No Known Allergies Allergy Unverified 12/24/24 16:43 Home Medications Medication Instructions Recorded Confirmed Type aspirin 81 mg tablet,delayed 81 mg PO QAM #7 tabs 12/24/24 Rx release atorvastatin 40 mg tablet 40 mg PO QAM #7 tabs 12/24/24 Rx lisinopril 5 mg tablet 5 mg PO QAM #7 tabs 12/24/24 Rx metoprolol tartrate 25 mg tablet 25 mg PO BID #7 tabs 12/24/24 Rx ticagrelor 90 mg tablet (Brilinta) 90 mg PO BID #7 tabs 12/24/24 Rx Patient History Social History Smoking Status: Current every day smoker Hx Alcohol Use: No Hx Substance Use: No Preferred Language: [place] Dry House Operator Required: No Beliefs That Will Affect Care: None Current Living Situation: Alone Other Information That Helps Us Care for You: No Feels Safe at Home: Yes Safety Concerns: Afraid for Self Assistive Devices: None Review of Systems Review of Systems: Negative except as per HPI Physical Exam Physical Exam: Initially in the emergency department Constitutional: Obese middle-age male. Mild acute distress. Eyes: Extraocular muscles intact. Sclera are anicteric. ENMT: Oral mucosa is dry. [place]. Neck: No JVD Respiratory: Clear to auscultation bilaterally. No wheezing, rhonchi, or rales appreciated. Fair air movement. Cardiovascular: Regular rate and rhythm. S4 gallop. Did not appreciate any rubs or murmurs in the emergency department. No edema noted. 1+ radial pulse Musculoskeletal: no cyanosis or clubbing, extremities motor strength 5/5 Neurologic: Cognition intact. Speech slow but fluent. No focal deficits. Psychiatric: A+Ox3, euthymic affect (Anxious) Results & Data Vital Signs (Past 12 Hours) Vital Signs Temp Pulse Pulse Resp BP BP Pulse Ox 12/24/24 19:45 93 12/24/24 19:31 113/87 12/24/24 19:30 91 H 23 91 12/24/24 19:27 128/83 12/24/24 19:15 112/82 12/24/24 19:00 115/72 12/24/24 19:00 115/72 12/24/24 19:00 94 H 28 H 92 12/24/24 18:45 88 10 L 89 L 12/24/24 18:45 109/82 12/24/24 18:30 92 H 19 96 12/24/24 18:30 122/82 12/24/24 18:30 36.5 C 88 18 122/82 95 12/24/24 18:15 115/72 12/24/24 18:13 123/75 12/24/24 18:00 83 16 112/78 91 12/24/24 17:45 85 16 110/94 94 12/24/24 17:30 76 18 140/101 H 94 12/24/24 17:17 132/93 12/24/24 17:15 82 14 141/89 H 99 12/24/24 17:09 125/89 12/24/24 17:03 122/87 12/24/24 17:00 82 24 97 12/24/24 16:54 82 16 116/84 97 12/24/24 16:50 79 20 97 12/24/24 16:41 85 20 118/76 12/24/24 16:37 79 20 125/73 12/24/24 16:30 85 16 98/78 L 12/24/24 14:25 81 12/24/24 14:10 36.5 C 80 18 105/76 93 O2 Del Method O2 Flow Rate 12/24/24 19:45 12/24/24 19:31 12/24/24 19:30 12/24/24 19:27 12/24/24 19:15 12/24/24 19:00 12/24/24 19:00 12/24/24 19:00 12/24/24 18:45 12/24/24 18:45 12/24/24 18:30 12/24/24 18:30 12/24/24 18:30 Oxymask 4 12/24/24 18:15 12/24/24 18:13 12/24/24 18:00 Oxymask 4 12/24/24 17:45 Oxymask 4 12/24/24 17:30 Oxymask 4 12/24/24 17:17 12/24/24 17:15 Oxymask 4 12/24/24 17:09 12/24/24 17:03 12/24/24 17:00 Oxymask 4 12/24/24 16:54 Oxymask 4 12/24/24 16:50 Oxymask 4 12/24/24 16:41 12/24/24 16:37 12/24/24 16:30 12/24/24 14:25 12/24/24 14:10 Room Air PG Care Time/CCT Total # of Minutes Spent Total Time Spent with Patient: Total time spent is greater than 50% in coordination of care (as documented) at patient's floor/unit and/or counseling patient: 120 minutes critical care time was spent in review of the records, evaluation of the patient in the emergency department as well as again in the ICU. This also includes time spent in discussion with the patient, his family, the emergency department care team, the ICU team, and the [facility] wardrobe coordinator (Dr. Najera). This time also encompasses time spent in the formulation and implementation of a evolving plan of care given his change of clinical status. Finally, the time includes all associated documentation. This time is exclusive of time spent for the procedure. Coding Level of Care Code 98454 CRITICAL CARE 1ST 30-74M Diagnoses ST elevation myocardial infarction (STEMI) I21.3 Stroke-like symptoms R29.90 Time Spent (min) 120
[2024-12-24] MEDS ORDERED: METOPROLOL TARTRATE 25 MG TAB PO SCH (21:00)
[2024-12-25] MEDS ORDERED: ASPIRIN 81 MG ECTAB PO SCH (09:00)
[2024-12-25] MEDS ORDERED: ATORVASTATIN 40 MG TAB PO SCH (09:00)
[2024-12-25] MEDS ORDERED: TICAGRELOR 90 MG TAB PO SCH (09:00)
--- NOTE | 2024-12-25 11:55 | Coding Query ---
CODING QUERY To promote full compliance with coding requirements relating to patient care, provider participation is requested in all cases of typesetter perforator operator uncertainty. Please assist us with the question(s) below: Coding Question(s): There is documentation on the Discharge Summary, under Principal Diagnosis of, "STEMI and LV thrombus/stroke like symptoms", and documentation, under Addtl Attending Provider Instructions of, "Due to our limited Neurology and Cardiac resources here at [facility], a transfer was initiated. A large LV thrombus, and now likely TIA vs. stroke was identified. EF appears around 30%. I spoke directly with Dr. Chavez Roa cardiac sugery and Dr Fidencio Fry from cardiology. Dr. Fry is the accepting physician. This individual requires an upgrade in care and is currently fit for travel and is hemodynamically stable. All patients belongings and next of kin updated. ", and then Supervising Physician documentation of, "Very complex case. Patient s/p inferior STEMI, now s/p 3 stents to RCA, partial fusiform RCA dissection, large LV thrombus, and now likely TIA vs. stroke. EF appears around 30%. Requires stroke center and advanced interventional cardiology team at tertiary care center given complexity of case. Going to [facility] cardiac ICU which is appropriate given complexity of case and possible need for further interventions". Please clarify below, in your clinical opinion, regarding stroke like symptoms, and likely TIA vs Stroke: ( x ) Likely TIA vs Stroke ( ) Likely TIA, No Stroke ( ) Likely Stroke, No TIA ( ) Stroke like symptoms with TIA and Stroke being ruled out Physician's Response(s): Thank you Yessica Buenrostro Principal Diagnosis: "that condition established after study, to be chiefly responsible for occasioning the admission of the patient to the hospital for care." Co-Existing Principal Diagnosis: "when two or more diagnoses equally meet the criteria for principal diagnosis as determined by the circumstances of admission, diagnostic work up, and/or therapy provided, and the Alphabetic Index, Tabular List, or another coding guideline does not provide sequencing direction, any one of the diagnoses may be sequenced first." "When the physician has documented what appears to be a current diagnosis in the body of the record, but has not included the diagnosis in the final diagnostic statement, the physician should be asked whether the diagnosis should be added." (Source Coding [facility] 2 QTR90. p3-4) [facility]
--- NOTE | 2024-12-25 12:02 | Coding Query ---
CODING QUERY To promote full compliance with coding requirements relating to patient care, provider participation is requested in all cases of employment specialist/program manager uncertainty. Please assist us with the question(s) below: Coding Question(s): Please specify below, in your clinical opinion, regarding documentation of the RCA Dissection with documentation, as on the 12/24/24 Brief Operative Note of, "Complications Unsuccessful PCI of RCA Extensive coronary dissection of unclear etiology (spontaneous versus iatrogenic)". ( ) Possible Intraoperative complication of the cardiac catheterization procedure ( ) Possible Complication from Other. Please Specify (x ) Not a Complication Physician's Response(s): Thank you Yessica Buenrostro Principal Diagnosis: "that condition established after study, to be chiefly responsible for occasioning the admission of the patient to the hospital for care." Co-Existing Principal Diagnosis: "when two or more diagnoses equally meet the criteria for principal diagnosis as determined by the circumstances of admission, diagnostic work up, and/or therapy provided, and the Alphabetic Index, Tabular List, or another coding guideline does not provide sequencing direction, any one of the diagnoses may be sequenced first." "When the physician has documented what appears to be a current diagnosis in the body of the record, but has not included the diagnosis in the final diagnostic statement, the physician should be asked whether the diagnosis should be added." (Source Coding [facility] 2 QTR90. p3-4) [facility]
--- NOTE | 2024-12-27 08:21 | Electrocardiogram Report ---
Test Reason : Blood Pressure : */* mmHG Vent. Rate : 80 BPM Atrial Rate : 80 BPM P-R Int : 164 ms QRS Dur : 110 ms QT Int : 390 ms P-R-T Axes : 25 -49 7 degrees QTcB Int : 449 ms Normal sinus rhythm Left anterior fascicular block Inferior-posterior infarct , age undetermined Anterolateral infarct , age undetermined Abnormal ECG No previous ECGs available Confirmed by Lanre Marques ([id number]) on 12/27/2024 8:21:28 AM Referred By: Confirmed By: Lanre Marques
--- NOTE | 2024-12-27 08:25 | Electrocardiogram Report ---
Test Reason : Blood Pressure : */* mmHG Vent. Rate : 80 BPM Atrial Rate : 80 BPM P-R Int : 182 ms QRS Dur : 108 ms QT Int : 400 ms P-R-T Axes : 33 -57 1 degrees QTcB Int : 461 ms Normal sinus rhythm Left anterior fascicular block Inferior-posterior infarct (cited on or before 24-Dec-2024) Cannot rule out Anterior infarct (cited on or before 24-Dec-2024) Abnormal ECG When compared with ECG of 24-Dec-2024 14:15, (unconfirmed) No significant change Confirmed by Lanre Marques ([id number]) on 12/27/2024 8:25:00 AM Referred By: REFERRED SELF Confirmed By: Lanre Marques
--- NOTE | 2024-12-27 08:30 | Electrocardiogram Report ---
Test Reason : Blood Pressure : */* mmHG Vent. Rate : 76 BPM Atrial Rate : 76 BPM P-R Int : 142 ms QRS Dur : 102 ms QT Int : 378 ms P-R-T Axes : 21 -53 -9 degrees QTcB Int : 425 ms Normal sinus rhythm Lateral infarct (cited on or before 24-Dec-2024) Inferior-posterior infarct (cited on or before 24-Dec-2024) Abnormal ECG When compared with ECG of 24-Dec-2024 16:11, (unconfirmed) No significant change Confirmed by Lanre Marques ([id number]) on 12/27/2024 8:30:20 AM Referred By: REFERRED SELF Confirmed By: Lanre Marques
== END 2024-12-24 19:30 | disposition short-term general hospital (02) | DRG 321 ==
LOC: ED 14:08 → 1E 15:16